=== PATIENT | female | born 1950 | race Caucasian/White ===

== ENCOUNTER 2021-10-02 17:10 | Inpatient (IN) ==
[2021-10-02] MEDS ORDERED: fentaNYL 100 MCG/2 ML VIAL IV ONE (17:43)
--- NOTE | 2021-10-02 17:55 | Emergency Department Note ---
HPI General Chief complaint: Extremity Injury, Lower Stated complaint: Lf hip fx Time Seen by Provider: 10/02/21 17:55 Source: EMS Mode of arrival: EMS Limitations: no limitations History of Present Illness HPI Narrative: Narrative: The patient is a 71-year-old female who was transferred from an outside medical facility for left hip fracture. Patient states that she fell and landed on her left hip. Denies any other injuries. Review of her medical record shows a closed impacted left femoral neck fracture. Patient states that she has a history of CABG and is on full dose aspirin daily. Related Data Home Medications Medication Instructions Recorded Confirmed aspirin [Lite Coat Aspirin] 325 mg PO DAILY 04/10/18 10/02/21 omeprazole 20 mg PO DAILY 04/10/18 10/02/21 simvastatin 20 mg PO HS 04/10/18 10/02/21 hydroxyurea 500 mg PO QDAY 10/02/21 10/02/21 Allergies Allergy/AdvReac Type Severity Reaction Status Date / Time hydrocodone AdvReac Severe Vomiting Verified 10/02/21 17:15 Review of Systems ROS ROS Narrative: Narrative: All systems ED: reviewed and negative except as stated. PFSH Narrative Patient History Narrative: Narrative: Medical/Surgical/Family History All Active Problems (Updated 10/02/21 @ 18:08 by Chidi Antonio DO) Closed left hip fracture (Acute) Social History Smoking Status: Former smoker Exam Narrative Narrative: Narrative: General Limitations: no limitations General appearance: Present alert Head Head: Present atraumatic and normocephalic Eye Eye: Present normal appearance, PERRL and EOMI ENT ENT: Present normal exam, normal oropharynx and mucous membranes moist Neck Neck: Present normal inspection, full ROM and trachea midline Chest Chest: Present normal inspection and symmetric chest wall rise Respiratory Respiratory: Present normal lung sounds bilaterally Cardiovascular Cardiovascular: Present regular rate and normal rhythm Adbominal Abdominal: Present soft and normal bowel sounds; Absent tenderness, guarding, rebound and organomegaly Rectal Rectal: Present deferred Extremities Extremities: Present tenderness (Tenderness to palpation to the left greater trochanter. Left lower extremity is shortened and externally rotated. Neurovascularly intact, compartments soft, DP and PT pulses are 2+ and symmetric, sensations intact to light touch.) Back Back: Present normal inspection and full ROM; Absent tenderness Neurological Neurological: Present alert, oriented X3, CN II-XII intact, normal gait, motor sensory deficit and reflexes normal Psychiatric Psychiatric: Present normal affect Skin Skin: Present warm (WNL); Absent rash Course Course Course Narrative: 18:00 spoke with the orthopedic surgeon, Dr. Acosta who is agreed to evaluate this patient. Also have consulted the hospitalist for evaluation as well. Vital Signs Vital signs: Vital Signs Temperature 98.2 F 10/02/21 17:11 Pulse Rate 62 10/02/21 17:11 Respiratory Rate 18 10/02/21 17:11 Blood Pressure 138/71 10/02/21 17:11 Pulse Oximetry (%) 95 10/02/21 17:11 Temperature 96.9 F L 10/02/21 23:58 Pulse Rate 63 10/02/21 20:41 Respiratory Rate 16 10/02/21 23:58 Blood Pressure 109/60 10/02/21 23:58 Pulse Oximetry (%) 95 10/02/21 23:58 MDM MDM Narrative Medical decision making narrative: Narrative: Discharge Plan Patient/Caregiver Discharge Instructions Pt seen by SKILL LABOR/PA only: No Clinical Impression: Closed left hip fracture Qualifiers: Encounter type: initial encounter Qualified Code(s): S72.002A - Fracture of unspecified part of neck of left femur, initial encounter for closed fracture Patient Disposition: Xfer As Inpt ([facility]) Condition: Serious Discharge Date/Time: 10/02/21 20:49 Discharge Location: [facility]
--- NOTE | 2021-10-02 19:36 | Internal Med History&Physical ---
HPI History of Present Illness Patient information: Note initiated : 10/02/21 at 7:27 pm Service Date, if different from initiated Date: [] Patient: Fani Barrios a 71 y/o F admitted on for Lf hip fx. Chief Complaint: [] History of present illness: Ms. Barrios is a 71 year old F Who was sent in from an outside facility after she fell and landed on her hip while getting out of a car at the same time as her dog. Found to have a left hip fracture. Patient has history of CAD with CABG and is on aspirin. Review of Systems: Pertinent positives as above. Denies headache/fever/chills/nausea/vomiting/chest or abdominal pain/cough/dyspnea/diarrhea. Remaining 10 point review of system reviewed negative PFSH PFSH All Active Problems (Updated 10/02/21 @ 18:08 by Chidi Antonio DO) Closed left hip fracture (Acute) MEDS/ALLERGIES Home Medications and Allergies Home Medications Medication Instructions Recorded Confirmed Type aspirin [Lite Coat Aspirin] 325 mg PO DAILY 04/10/18 10/02/21 History omeprazole 20 mg PO DAILY 04/10/18 10/02/21 History simvastatin 20 mg PO HS 04/10/18 10/02/21 History hydroxyurea 500 mg PO QDAY 10/02/21 10/02/21 History Allergies Allergy/AdvReac Type Severity Reaction Status Date / Time hydrocodone AdvReac Severe Vomiting Verified 10/02/21 17:15 EXAM Constitutional Vitals: Temp Pulse Resp BP Pulse Ox 98.2 F 80 18 138/70 96 10/02/21 17:11 10/02/21 18:40 10/02/21 18:40 10/02/21 18:40 10/02/21 18:40 Exam: General: Alert, Awake, No acute Distress Eyes/N/T: EOMI, PERRL, Head/Neck: neck supple, normocephalic atraumatic CV: RRR, No murmurs, normal s1/s2 Pulm: Clear b/l, no wheezing/rhonchi/rales Abd: soft, nontender, +BS x4 Ext: no clubbing/cyanosis/edema Neuro: Alert, no focal deficits, moves all extremities, CN 2-12 grossly intact, symmetrical strength b/l upper/lower, sensations intact b/l upper/lower Skin: warm/dry A/P Narrative A/P Narrative: A: *Left hip fracture: *CAD w/CABG: on ASA/statin *GERD: *h/o essential thrombocythemia: on hydroxyurea/ASA * P: -Dr. Acosta for Ortho -restart aspirin post-op for essential thrombocythemia - -pt/ot -ppx: post-op per ortho / home ppi full code Time Spent With Patient Time: Total time spent is greater than 50% in coordination of care (as documented) at patient's floor/unit and/or counseling patient:
[2021-10-02] MEDS ORDERED: POTASSIUM CHLORIDE 40 MEQ in DEXTROSE 5% IN WATER 500 ML IV PRN (21:02)
[2021-10-02] MEDS ORDERED: POTASSIUM CHLORIDE 20 MEQ TABLET PO PRN ×2 (21:02)
[2021-10-02] MEDS ORDERED: MAGNESIUM SULFATE 2 GM/50 ML BAG IV PRN (21:02)
[2021-10-02] MEDS ORDERED: HYDROcodone/APAP 5/325MG TABLET PO PRN (21:02)
[2021-10-02] MEDS ORDERED: POLYETHYLENE GLYCOL 3350 17 GM PACKET PO PRN (21:02)
[2021-10-02] MEDS ORDERED: ACETAMINOPHEN 325 MG TABLET PO PRN (21:02)
[2021-10-02] MEDS ORDERED: SENNOSIDES 1 TABLET PO PRN (21:02)
[2021-10-02] MEDS ORDERED: IPRATROPIUM/ALBUTEROL 3 ML AMPUL.NEB NEB PRN (21:02)
[2021-10-02] MEDS ORDERED: ONDANSETRON 4 MG/2 ML VIAL IV PRN (21:02)
[2021-10-02] MEDS ORDERED: traMADol 50 MG TABLET PO PRN (21:42)
[2021-10-02] MEDS: DOCUSATE SODIUM 100 MG CAPSULE PO SCH (21:50)
[2021-10-02] MEDS: SIMVASTATIN 20 MG TABLET PO SCH (21:50)
[2021-10-02] MEDS: 0.9 % SODIUM CHLORIDE 10 ML SYRINGE IV SCH (22:12)
[2021-10-02] MEDS ORDERED: METHOCARBAMOL 1,000 MG/10 ML VIAL IV PRN (23:23)
[2021-10-02] MEDS ORDERED: METHOCARBAMOL 1,000 MG/10 ML VIAL ONE (23:40)
[2021-10-03] MEDS ORDERED: fentaNYL 100 MCG/2 ML VIAL IV PRN (00:59)
[2021-10-03] MEDS: 0.9 % SODIUM CHLORIDE 10 ML SYRINGE IV SCH ×3 (05:37→20:21)
[2021-10-03 06:36] LABS: Basophils # (Auto) 0.02 K/mcL (0.00-0.30); Basophils % (Auto) 0.3 % (0.0-2.0); Eosinophils # (Auto) 0.06 K/mcL (0.00-0.70); Eosinophils % (Auto) 0.8 % (0.0-7.0); Hematocrit 37.1 % (34.1-44.9); Hemoglobin 12.5 g/dL (11.2-15.7); Lymphocytes # (Auto) 1.86 K/mcL (1.50-4.80); Lymphocytes % (Auto) 23.7 % (15.5-49.0); Mean Cell Volume 114.2 fL (80.0-100.0); Mean Corpuscular HGB Conc 33.7 g/dL (31.0-36.0); Mean Platelet Volume 9.9 fL (7.4-10.4); Monocytes # (Auto) 0.68 K/mcL (0.10-0.90); Monocytes % (Auto) 8.7 % (1.0-12.0); Neutrophils % (Auto) 66.5 % (38.0-78.0); Platelet Count 182 K/mcL (140-440); RBC 3.25 M/mcL (3.59-5.38); Red Cell Distribution Width 11.9 % (11.5-14.5); WBC 7.9 K/mcL (4.5-11.0)
[2021-10-03] MEDS: OMEPRAZOLE 20 MG CAPSULE PO SCH (06:43)
[2021-10-03 06:58] LABS: INR 1.1 (0.9-1.1); Prothrombin Time 14.7 sec (11.9-14.5)
[2021-10-03 07:12] LABS: ALT/SGPT 15 U/L (<40); AST/SGOT 21 U/L (<32); Albumin 3.9 gm/dL (3.2-5.2); Albumin/Globulin Ratio 1.5 (1.0-2.3); Alkaline Phosphatase 70 U/L (39-117); Bilirubin,Direct < 0.2 mg/dL (0-0.3); Bilirubin,Total 0.6 mg/dL (0.1-1.0); Blood Urea Nitrogen 22 mg/dL (8-23); Calcium 9.2 mg/dL (8.6-10.4); Carbon Dioxide 23 mmol/L (22-30); Chloride 103 mmol/L (96-108); Globulin 2.6 gm/dL (2.2-3.7); Glomerular Filtration Rate 56; Glucose 93 mg/dL (70-105); Lactate Dehydrogenase 187 U/L (135-225); Phosphorous 3.4 mg/dL (2.5-4.5); Triglycerides 115 mg/dL (<150); Uric Acid 4.1 mg/dL (2.5-8.0)
[2021-10-03] MEDS ORDERED: TRANEXAMIC ACID 1,000 MG/10 ML VIAL IV ONE (07:25)
[2021-10-03] MEDS ORDERED: ceFAZolin 2 GM in DEXTROSE 5% IN WATER 50 ML IV SCH (07:30)
--- NOTE | 2021-10-03 07:39 | Internal Med Progress Note ---
SUBJECTIVE Subjective Patient information: Note initiated : 10/03/21 at 7:37 am Service Date, if different from initiated Date: [] Patient: Fani Barrios a 71 y/o F admitted on 10/02/21 for Lf hip fx. Chief Complaint: [] Interval history: History of present illness: Ms. Barrios is a 71 year old F Who was sent in from an outside facility after she fell and landed on her hip while getting out of a car at the same time as her dog. Found to have a left hip fracture. Patient has history of CAD with CABG and is on aspirin. 10/03 now s/p ORIF of hip. Sedated postop in PACU. No complications during surgery. Review of Systems: Constitutional Vitals: Vital Signs Temp Pulse Resp BP Pulse Ox 97 F 58 L 19 129/73 95 10/03/21 06:31 10/03/21 06:31 10/03/21 06:31 10/03/21 06:31 10/03/21 06:31 Period Temp Pulse Resp BP Sys/Carr Pulse Ox Last 24 Hr 96.3 F-98.2 F 58-80 16-19 109-147/60-79 91-97 Intake and Output 10/02/21 10/03/21 10/03/21 22:59 05:59 13:59 Intake Total Output Total Balance Weight Intake & Output: Intake & Output 10/02/21 10/03/21 10/03/21 22:59 05:59 13:59 Intake Total Output Total Balance Weight Intake: Oral Output: Void Amount Other: Meal Percent of Meal Consumed Urine Appearance Uretheral (Alberts) Clear Urine Color Uretheral (Alberts) Bright Yellow Urine Odor Uretheral (Alberts) Normal Exam: General: Alert, Awake, No acute Distress Eyes/N/T: EOMI, Head/Neck: neck supple, CV: RRR, No murmurs, Pulm: Clear b/l, no wheezing/rhonchi/rales Abd: soft, nontender, +BS x4 Ext: no clubbing/cyanosis/edema Neuro: Alert, no focal deficits, moves all extremities, Skin: warm/dry OBJ DATA Labs CBC & Chem 7: 10/03/21 05:19 10/03/21 05:19 Labs: Abnormal Lab Results 10/03/21 10/03/21 05:19 05:19 RBC 3.25 L MCV 114.2 H MCH 38.5 H PT 14.7 H Meds: Medications Acetaminophen (Acetaminophen 325 Mg Tablet) 650 mg PO Q6HP PRN; Protocol PRN Reason: Per Pain Protocol/Fever > 101 Last Admin: 10/02/21 21:49 Dose: 650 mg Documented by: Albuterol/Ipratropium (Ipratropium/Albuterol 3 Ml Ampul.Neb) 3 ml NEB Q4HP PRN PRN Reason: Shortness Of Breath Albuterol/Ipratropium (Ipratropium/Albuterol 3 Ml Ampul.Neb) 3 ml NEB ONCE PRN PRN Reason: Shortness Of Breath Stop: 10/03/21 18:00 Docusate Sodium (Docusate Sodium 100 Mg Capsule) 100 mg PO BID [facility] Last Admin: 10/02/21 21:50 Dose: 100 mg Documented by: Fentanyl (Fentanyl 100 Mcg/2 Ml Vial) 25 mcg IV Q2HP PRN; Protocol PRN Reason: Per Pain Protocol Hydroxyurea (Hydroxyurea 500 Mg Capsule) 500 mg PO QDAY JOHN Potassium Chloride 40 meq/ (Dextrose) 520 mls @ 130 mls/hr IV UD PRN PRN Reason: Potassium < 3 Magnesium Sulfate (Magnesium Sulfate) 2 gm in 50 mls @ 50 mls/hr IV UD PRN PRN Reason: Magnesium </= 1.6 Cefazolin Sodium 2 gm/ (Dextrose) 50 mls @ 100 mls/hr IV PREOP JOHN; Protocol Methocarbamol (Methocarbamol 1,000 Mg/10 Ml Vial) 750 mg IV Q6HP PRN PRN Reason: Muscle Spasm Omeprazole (Omeprazole 20 Mg Capsule) 20 mg PO ACB [facility] Last Admin: 10/03/21 06:43 Dose: Not Given Documented by: Ondansetron HCl (Ondansetron 4 Mg/2 Ml Vial) 4 mg IV Q4HP PRN PRN Reason: Nausea And Vomiting Polyethylene Glycol (Polyethylene Glycol 3350 17 Gm Packet) 17 gm PO DAILYP PRN PRN Reason: Constipation Potassium Chloride (Potassium Chloride 20 Meq Tablet) 40 meq PO UD PRN PRN Reason: Potssium is 3-3.5 Potassium Chloride (Potassium Chloride 20 Meq Tablet) 40 meq PO UD PRN PRN Reason: Potassium < 3 Scopolamine (Scopolamine 1 Patch Patch) 1 patch TOPICAL PREOP PRN PRN Reason: Nausea And Vomiting Stop: 10/03/21 18:00 Senna (Sennosides 1 Tablet) 2 tab PO DAILYP PRN PRN Reason: Constipation Simvastatin (Simvastatin 20 Mg Tablet) 20 mg PO HS JOHN Last Admin: 10/02/21 21:50 Dose: 20 mg Documented by: Sodium Chloride (0.9 % Sodium Chloride 10 Ml Syringe) 10 ml IV Q8 JOHN Last Admin: 10/03/21 05:37 Dose: 10 ml Documented by: Tramadol HCl (Tramadol 50 Mg Tablet) 50 mg PO Q4-6HP PRN; Protocol PRN Reason: Pain Last Admin: 10/02/21 21:49 Dose: 50 mg Documented by: Tranexamic Acid (Tranexamic Acid 1,000 Mg/10 Ml Vial) 1,000 mg IV PREOP ONE Stop: 10/03/21 07:26 A/P Narrative A/P Narrative: A: *Left hip fracture: s/p ORIF (10/03) *CAD w/CABG: on ASA/statin *GERD: *h/o essential thrombocythemia: on hydroxyurea/ASA P: -Dr. Acosta for Ortho -restart aspirin post-op for essential thrombocythemia - -pt/ot -ppx: post-op per ortho / home ppi full code Time Spent With Patient Time: Total time spent is greater than 50% in coordination of care (as documented) at patient's floor/unit and/or counseling patient:
[2021-10-03] MEDS ORDERED: 0.9 % SODIUM CHLORIDE 1,000 ML IV SCH (07:45)
[2021-10-03] MEDS ORDERED: IPRATROPIUM/ALBUTEROL 3 ML AMPUL.NEB NEB PRN ×2 (08:00→08:58)
[2021-10-03] MEDS ORDERED: SCOPOLAMINE 1 PATCH PATCH TOPICAL PRN (08:00)
[2021-10-03] MEDS ORDERED: fentaNYL 100 MCG/2 ML VIAL IV ONE (08:15)
[2021-10-03] MEDS ORDERED: GLYCOPYRROLATE 0.2 MG/ML VIAL IV ONE (08:15)
[2021-10-03] MEDS ORDERED: ONDANSETRON 4 MG/2 ML VIAL ONE (08:15)
[2021-10-03] MEDS ORDERED: DEXAMETHASONE 10 MG/ML VIAL ONE (08:15)
[2021-10-03] MEDS ORDERED: MAGNESIUM SULFATE 2 GM/50 ML BAG IV ONE (08:15)
[2021-10-03] MEDS ORDERED: LIDOCAINE HCL/PF 100 MG/5 ML SYRINGE IV ONE (08:15)
[2021-10-03] MEDS ORDERED: PHENYLEPHRINE 10 MG/ML VIAL ONE (08:15)
[2021-10-03] MEDS ORDERED: KETAMINE 50 MG/ML Syringe (ANEST) IV ONE (08:15)
[2021-10-03] MEDS ORDERED: TRANEXAMIC ACID 1,000 MG/10 ML VIAL ONE (08:15)
[2021-10-03] MEDS ORDERED: PROPOFOL 200 MG/20 ML VIAL IV ONE (08:15)
[2021-10-03] MEDS: DOCUSATE SODIUM 100 MG CAPSULE PO SCH ×2 (08:51→20:30)
[2021-10-03] MEDS ORDERED: METOPROLOL TARTRATE 5 MG/5 ML VIAL IV PRN (08:58)
[2021-10-03] MEDS ORDERED: LACTATED RINGERS 250 ML IV PRN (08:58)
[2021-10-03] MEDS ORDERED: HYDROmorphone 0.5 MG/0.5 ML SYRINGE IV PRN (08:58)
[2021-10-03] MEDS ORDERED: ONDANSETRON 4 MG/2 ML VIAL IV PRN (08:58)
[2021-10-03] MEDS ORDERED: LABETALOL 5 MG/ML ML IV PRN (08:58)
[2021-10-03] MEDS ORDERED: METHOCARBAMOL 1,000 MG/10 ML VIAL IV PRN (08:58)
[2021-10-03] MEDS ORDERED: NALOXONE HCL 0.4 MG/ML VIAL IV PRN (08:58)
[2021-10-03] MEDS ORDERED: BENZOCAINE/MENTHOL 1 LOZENGE PO PRN ×2 (08:58→09:41)
[2021-10-03] MEDS ORDERED: LACTATED RINGERS 1,000 ML IV SCH (09:00)
[2021-10-03] MEDS ORDERED: ACETAMINOPHEN 850 MG/85 ML BAG IV ONE (09:00)
--- NOTE | 2021-10-03 09:40 | Brief Operative Note ---
Brief Operative Note Date of procedure: 10/03/21 Pre-op diagnosis: left displaced femoral neck fracture Post-op diagnosis: same Procedure: left cement sydney hip arthroplasty Grafts/Implants: Yes Anesthesia: GETA Findings: displaced femoral neck fracture Complications: none Surgeon: Cassandra Acosta Button Breaker Operator: Leighton Lau Estimated blood loss (cc): 200 Tourniquet Time (Minutes): 0 Specimens Removed/Pathology: none sent Condition: stable Disposition: PACU
[2021-10-03] MEDS ORDERED: TRANEXAMIC ACID 1,000 MG/10 ML VIAL IV SCH (09:41)
[2021-10-03] MEDS ORDERED: ceFAZolin 1 GM VIAL IV SCH (09:45)
[2021-10-03] MEDS ORDERED: METHOCARBAMOL 750 MG TABLET PO PRN (09:45)
[2021-10-03] MEDS: HYDROXYUREA 500 MG CAPSULE PO SCH (10:32)
--- NOTE | 2021-10-03 10:45 | XRay Report ---
INDICATION: status post sydney hip arthroplasty TECHNIQUE: AP pelvis. AP and lateral left hip COMPARISON: Previous examination dated 10/02/2021 FINDINGS: Status post left hemihip arthroplasty. Alignment is anatomic. There is postsurgical soft tissue gas. There are skin sandeep. IMPRESSION: Left hemihip arthroplasty Interpreted and Authenticated by: Steven Arroyo 10/03/21
[2021-10-03] MEDS: LACTATED RINGERS 1,000 ML IV SCH ×2 (11:49→21:20)
[2021-10-03] MEDS: ACETAMINOPHEN 325 MG TABLET PO SCH ×2 (13:38→20:32)
[2021-10-03] MEDS: ceFAZolin 1 GM VIAL IV SCH ×2 (16:18→23:31)
--- NOTE | 2021-10-03 17:08 | EKG ---
[facility] Test Date: 2021-10-02 Pat Name: Fani Barrios Department: [facility] Room: 126 Gender: Female Airport Engineer: : 1950 Requested By: Kingston Dunne Order Number: [id number] Reading MD: Forrest Anderson Measurements Intervals Goode Rate: 63 P: 74 NM: 152 QRS: -14 QRSD: 102 T: 142 QT: 436 QTc: 447 Interpretive Statements SINUS RHYTHM LEFT ATRIAL ABNORMALITY PROBABLE ANTEROSEPTAL INFARCT, AGE INDETERM LATERAL LEADS ARE ALSO INVOLVED Electronically Signed On 10-03-2021 17:08:21 PST by Forrest Anderson /[email or web address]/[id number]/[id number]
[2021-10-03] MEDS: SIMVASTATIN 20 MG TABLET PO SCH (20:31)
[2021-10-03] MEDS: APIXABAN 5 MG TABLET PO SCH (20:33)
[2021-10-04] MEDS: traMADol 50 MG TABLET PO PRN ×2 (05:21→17:31)
[2021-10-04] MEDS: ACETAMINOPHEN 325 MG TABLET PO SCH ×2 (05:22→16:06)
[2021-10-04] MEDS: 0.9 % SODIUM CHLORIDE 10 ML SYRINGE IV SCH ×3 (05:25→22:27)
--- NOTE | 2021-10-04 06:17 | Orthopedic Progress Note ---
SUBJECTIVE Subjective Patient information: Note initiated : 10/04/21 at 6:13 am Service Date, if different from initiated Date: [] Patient: Fani Barrios 71 y/o F admitted on 10/02/21 for Lf hip fx. Chief Complaint: [POD 1 s/p left hip sydney hip arthroplasty. No new issues. Pain is controlled. No nausea, tolerating oral diet. Not mobilized yet.] Constitutional Vitals: Vital Signs Temp Pulse Resp BP Pulse Ox 96.8 F L 74 16 135/68 95 10/04/21 03:25 10/04/21 03:25 10/04/21 03:25 10/04/21 03:25 10/04/21 03:25 Period Temp Pulse Resp BP Sys/Carr Pulse Ox Last 24 Hr 96.8 F-98.7 F 54-77 6-19 117-162/65-103 88-100 Intake and Output 10/03/21 10/04/21 10/04/21 21:59 05:59 13:59 Intake Total 250 1200 Output Total 1500 500 Balance -1250 700 Weight 125 lb Intake & Output: Intake & Output 10/03/21 10/04/21 10/04/21 21:59 05:59 13:59 Intake Total 250 1200 Output Total 1500 500 Balance -1250 700 Weight 125 lb Intake: IV 1000 Lactated Ringers 1,000 ml @ 75 1000 mls/hr IV .[id number] [facility] Rx#: [id number] Oral 250 200 Output: Urine Catheter Amount 800 Void Amount 700 500 Other: Meal Dinner Percent of Meal Consumed 100% Urine Appearance Clear Uretheral (Alberts) Clear Urine Color Bright Yellow Bright Yellow Uretheral (Alberts) Pale Additional findings Additional findings: General: alert and oriented Left hip: dressing in place, clean and dry. Able to do straight leg raise. Foot warm well perfused. OBJ DATA Labs CBC & Chem 7: 10/03/21 05:19 10/03/21 05:19 Labs: Abnormal Lab Results 10/03/21 10/03/21 05:19 05:19 RBC 3.25 L MCV 114.2 H MCH 38.5 H PT 14.7 H Meds: Medications Acetaminophen (Acetaminophen 325 Mg Tablet) 1,000 mg PO Q8 [facility]; Protocol Last Admin: 10/04/21 05:22 Dose: 1,000 mg Documented by: Albuterol/Ipratropium (Ipratropium/Albuterol 3 Ml Ampul.Neb) 3 ml NEB Q4HP PRN PRN Reason: Shortness Of Breath Apixaban (Apixaban 5 Mg Tablet) 2.5 mg PO BID [facility] Last Admin: 10/03/21 20:33 Dose: Not Given Documented by: Docusate Sodium (Docusate Sodium 100 Mg Capsule) 100 mg PO BID [facility] Last Admin: 10/03/21 20:30 Dose: 100 mg Documented by: Fentanyl (Fentanyl 100 Mcg/2 Ml Vial) 25 mcg IV Q2HP PRN; Protocol PRN Reason: Per Pain Protocol Hydroxyurea (Hydroxyurea 500 Mg Capsule) 500 mg PO QDAY [facility] Last Admin: 10/03/21 10:32 Dose: Not Given Documented by: Potassium Chloride 40 meq/ (Dextrose) 520 mls @ 130 mls/hr IV UD PRN PRN Reason: Potassium < 3 Magnesium Sulfate (Magnesium Sulfate) 2 gm in 50 mls @ 50 mls/hr IV UD PRN PRN Reason: Magnesium </= 1.6 Lactated Ringer's (Lactated Ringers) 1,000 mls @ 75 mls/hr IV .[id number] [facility] Last Infusion: 10/04/21 01:20 Dose: Infused Documented by: Methocarbamol (Methocarbamol 750 Mg Tablet) 500 mg PO Q6HP PRN PRN Reason: Muscle Spasm Omeprazole (Omeprazole 20 Mg Capsule) 20 mg PO ACB [facility] Last Admin: 10/03/21 06:43 Dose: Not Given Documented by: Ondansetron HCl (Ondansetron 4 Mg/2 Ml Vial) 4 mg IV Q4HP PRN PRN Reason: Nausea And Vomiting Polyethylene Glycol (Polyethylene Glycol 3350 17 Gm Packet) 17 gm PO DAILYP PRN PRN Reason: Constipation Potassium Chloride (Potassium Chloride 20 Meq Tablet) 40 meq PO UD PRN PRN Reason: Potssium is 3-3.5 Potassium Chloride (Potassium Chloride 20 Meq Tablet) 40 meq PO UD PRN PRN Reason: Potassium < 3 Senna (Sennosides 1 Tablet) 2 tab PO DAILYP PRN PRN Reason: Constipation Simvastatin (Simvastatin 20 Mg Tablet) 20 mg PO HS [facility] Last Admin: 10/03/21 20:31 Dose: 20 mg Documented by: Sodium Chloride (0.9 % Sodium Chloride 10 Ml Syringe) 10 ml IV Q8 JOHN Last Admin: 10/04/21 05:25 Dose: 10 ml Documented by: Throat Lozenges (Benzocaine/Menthol 1 Lozenge) 1 lozenge PO PRN PRN PRN Reason: Sore Throat Tramadol HCl (Tramadol 50 Mg Tablet) 50 - 100 mg PO Q4-6HP PRN; Protocol PRN Reason: Pain Last Admin: 10/04/21 05:21 Dose: 50 mg Documented by: A/P Assessment and plan (1) Closed left hip fracture: Status: Acute Comment: POD 1 s/p left hip sydney arthroplasty for displaced femoral neck fracture. -- WBAT, posterior hip precautions -- PT/OT today -- Oral pain meds -- regular diet -- prophy: eliquis, IS, foot pumps, mobilization -- Dispo: pending on how she does with PT- possible home Qualifiers: Encounter type: initial encounter Qualified Code(s): S72.002A - Fracture of unspecified part of neck of left femur, initial encounter for closed fracture Time Spent With Patient Time: Total time spent is greater than 50% in coordination of care (as documented) at patient's floor/unit and/or counseling patient:
[2021-10-04 06:38] LABS: Hematocrit 35.1 % (34.1-44.9); Hemoglobin 12.7 g/dL (11.2-15.7)
--- NOTE | 2021-10-04 07:10 | Consultation ---
DATE OF CONSULTATION: 10/02/2021 REASON FOR CONSULTATION: Left hip fracture. CONSULTING PROVIDER: ER provider at [facility]. HISTORY OF PRESENT ILLNESS: The patient is a 71-year-old female, who was out of town today when she had a ground level fall resulting when her dog got pulled on the leash. She fell on her left side, is unable to ambulate and was subsequently seen in an outside emergency department and found to have a left displaced femoral neck fracture. Subsequently, transferred to [facility] for further evaluation and care. Upon presentation, she only complains about left hip pain. She denies any loss of consciousness or any other injuries at that time. PAST MEDICAL HISTORY: Significant for coronary artery disease with prior CABG with reported cardiology followup. Doing well, hypertension. PAST SURGICAL HISTORY: She has had thumb surgery as well as colonoscopies. ALLERGIES: NO KNOWN DRUG ALLERGIES. MEDICATIONS: She does not know the names of them. However, she does report she does take 3 with the list being aspirin, omeprazole, simvastatin, hydroxyurea. SOCIAL HISTORY: She resides with her here locally. She has no other family in [facility]. Reports that her has had both hips fractured and what sounds like a hemihip arthroplasty. REVIEW OF SYSTEMS: Other than the mentioned in HPI, a 10-point review of systems negative. PHYSICAL EXAMINATION: VITAL SIGNS: The patient is afebrile with temperature 98.2. Her heart rate is in the 50s to low 60s, blood pressure 130s/70s. Saturating in the 90s on room air. NEUROLOGIC: The patient is alert, oriented, interactive, appropriate. EXTREMITIES: Bilateral extremities appear atraumatic. She has full use of the extremities. Right lower extremity is atraumatic as well. No tenderness to palpation throughout the foot. It is warm and well perfused. Sensation is intact. Left lower extremity, she has a hip slightly flexed with a pillow underneath her knee, slightly shortened position. She does have tenderness about the hip, but also a bit above the knee itself. There are no abrasions. Skin is intact about the knee. There is no knee joint effusion. No crepitus, no abnormal appearance to it. Otherwise, the remainder of the extremity is atraumatic. The foot is warm and well perfused. Sensation is intact. IMAGING: She has plain radiographs demonstrating a displaced left femoral neck fracture. LABORATORY DATA: She has labs from outside facility with a CBC with a white count of 7, hemoglobin of 13.4, hematocrit is 37.9, platelet count is 164. She has a chemistry with a glucose of 93 and a creatinine of 0.9. Code is pending as well as the coags at the outside facilities reports that is pending as well. ASSESSMENT AND PLAN: This is a 71-year-old female who had a past history of coronary artery disease requiring CABG procedure with a displaced left femoral neck fracture. PLAN: I discussed the diagnosis with her at length. I reviewed the treatment options with recommendation for a left hip hemiarthroplasty. I discussed what this entails, the risks associated with this. Also discussed a total hip arthroplasty; however, has a bit higher dislocation rate and typically my recommendation would be for a hip hemiarthroplasty. Her had 2 of these. She is well versed and does agree that this is okay treatment for her and wished to proceed in that fashion. I will plan to do this tomorrow morning until then she can be nonweightbearing. I did discuss the patient with the hospitalist, who agreed to admit patient. CHANG:cassi Job ID: [id number] Doc ID: [id number] Cassandra Acosta MD [email or web address]
--- NOTE | 2021-10-04 07:49 | Internal Med Progress Note ---
SUBJECTIVE Subjective Patient information: Note initiated : 10/04/21 at 7:47 am Service Date, if different from initiated Date: [] Patient: Fani Barrios a 71 y/o F admitted on 10/02/21 for Lf hip fx. Chief Complaint: [] Interval history: History of present illness: Ms. Barrios is a 71 year old F Who was sent in from an outside facility after she fell and landed on her hip while getting out of a car at the same time as her dog. Found to have a left hip fracture. Patient has history of CAD with CABG and is on aspirin. 10/03 now s/p ORIF of hip. Sedated postop in PACU. No complications during surgery. 10/04 Patient doing well. Hoping to go home instead of to rehab. Review of Systems: denies headache/fever/chills/nausea/vomiting/chest or abdominal pain/cough/dyspnea/diarrhea. Otherwise see above. Constitutional Vitals: Vital Signs Temp Pulse Resp BP Pulse Ox 97.1 F 94 H 16 116/67 93 10/04/21 07:16 10/04/21 07:16 10/04/21 07:16 10/04/21 07:16 10/04/21 07:16 Period Temp Pulse Resp BP Sys/Carr Pulse Ox Last 24 Hr 96.8 F-98.7 F 54-94 6-18 116-162/65-103 88-100 Intake and Output 10/03/21 10/04/21 10/04/21 21:59 05:59 13:59 Intake Total 250 1200 Output Total 1500 500 Balance -1250 700 Weight 56.699 kg Intake & Output: Intake & Output 10/03/21 10/04/21 10/04/21 21:59 05:59 13:59 Intake Total 250 1200 Output Total 1500 500 Balance -1250 700 Weight 56.699 kg Intake: IV 1000 Lactated Ringers 1,000 ml @ 75 1000 mls/hr IV .[id number] [facility] Rx#: [id number] Oral 250 200 Output: Urine Catheter Amount 800 Void Amount 700 500 Other: Meal Dinner Percent of Meal Consumed 100% Urine Appearance Clear Uretheral ([place]berts) Clear Urine Color Bright Yellow Bright Yellow Uretheral ([place]berts) Pale Exam: General: Alert, Awake, No acute Distress Eyes/N/T: EOMI, Head/Neck: neck supple, CV: RRR, No murmurs, Pulm: Clear b/l, no wheezing/rhonchi/rales Abd: soft, nontender, +BS x4 Ext: no clubbing/cyanosis/edema Neuro: Alert, no focal deficits, moves all extremities, Skin: warm/dry OBJ DATA Labs CBC & Chem 7: 10/04/21 05:28 10/03/21 05:19 Labs: Abnormal Lab Results 10/03/21 10/03/21 05:19 05:19 RBC 3.25 L MCV 114.2 H MCH 38.5 H PT 14.7 H Meds: Medications Acetaminophen (Acetaminophen 325 Mg Tablet) 1,000 mg PO Q8 [facility]; Protocol Last Admin: 10/04/21 05:22 Dose: 1,000 mg Documented by: Albuterol/Ipratropium (Ipratropium/Albuterol 3 Ml Ampul.Neb) 3 ml NEB Q4HP PRN PRN Reason: Shortness Of Breath Apixaban (Apixaban 5 Mg Tablet) 2.5 mg PO BID [facility] Last Admin: 10/03/21 20:33 Dose: Not Given Documented by: Docusate Sodium (Docusate Sodium 100 Mg Capsule) 100 mg PO BID [facility] Last Admin: 10/03/21 20:30 Dose: 100 mg Documented by: Fentanyl (Fentanyl 100 Mcg/2 Ml Vial) 25 mcg IV Q2HP PRN; Protocol PRN Reason: Per Pain Protocol Hydroxyurea (Hydroxyurea 500 Mg Capsule) 500 mg PO QDAY [facility] Last Admin: 10/03/21 10:32 Dose: Not Given Documented by: Potassium Chloride 40 meq/ (Dextrose) 520 mls @ 130 mls/hr IV UD PRN PRN Reason: Potassium < 3 Magnesium Sulfate (Magnesium Sulfate) 2 gm in 50 mls @ 50 mls/hr IV UD PRN PRN Reason: Magnesium </= 1.6 Lactated Ringer's (Lactated Ringers) 1,000 mls @ 75 mls/hr IV .[id number] [facility] Last Infusion: 10/04/21 01:20 Dose: Infused Documented by: Methocarbamol (Methocarbamol 750 Mg Tablet) 500 mg PO Q6HP PRN PRN Reason: Muscle Spasm Omeprazole (Omeprazole 20 Mg Capsule) 20 mg PO ACB [facility] Last Admin: 10/03/21 06:43 Dose: Not Given Documented by: Ondansetron HCl (Ondansetron 4 Mg/2 Ml Vial) 4 mg IV Q4HP PRN PRN Reason: Nausea And Vomiting Polyethylene Glycol (Polyethylene Glycol 3350 17 Gm Packet) 17 gm PO DAILYP PRN PRN Reason: Constipation Potassium Chloride (Potassium Chloride 20 Meq Tablet) 40 meq PO UD PRN PRN Reason: Potssium is 3-3.5 Potassium Chloride (Potassium Chloride 20 Meq Tablet) 40 meq PO UD PRN PRN Reason: Potassium < 3 Senna (Sennosides 1 Tablet) 2 tab PO DAILYP PRN PRN Reason: Constipation Simvastatin (Simvastatin 20 Mg Tablet) 20 mg PO HS [facility] Last Admin: 10/03/21 20:31 Dose: 20 mg Documented by: Sodium Chloride (0.9 % Sodium Chloride 10 Ml Syringe) 10 ml IV Q8 [facility] Last Admin: 10/04/21 05:25 Dose: 10 ml Documented by: Throat Lozenges (Benzocaine/Menthol 1 Lozenge) 1 lozenge PO PRN PRN PRN Reason: Sore Throat Tramadol HCl (Tramadol 50 Mg Tablet) 50 - 100 mg PO Q4-6HP PRN; Protocol PRN Reason: Pain Last Admin: 10/04/21 05:21 Dose: 50 mg Documented by: A/P Narrative A/P Narrative: A: *Left hip fracture: s/p ORIF (10/03) *CAD w/CABG: on ASA/statin *GERD: *h/o essential thrombocythemia: on hydroxyurea/ASA -well controlled P: -Dr. Acosta for Ortho -restart aspirin post-op for essential thrombocythemia when ok with ortho - -pt/ot -ppx: post-op per ortho apixaban / home ppi full code Time Spent With Patient Time: Total time spent is greater than 50% in coordination of care (as documented) at patient's floor/unit and/or counseling patient:
[2021-10-04] MEDS: OMEPRAZOLE 20 MG CAPSULE PO SCH (08:01)
[2021-10-04] MEDS: APIXABAN 5 MG TABLET PO SCH ×3 (08:01→22:27)
[2021-10-04] MEDS: DOCUSATE SODIUM 100 MG CAPSULE PO SCH ×2 (08:01→22:27)
[2021-10-04] MEDS: HYDROXYUREA 500 MG CAPSULE PO SCH (08:02)
--- NOTE | 2021-10-04 08:22 | Operative Note ---
DATE OF OPERATION: 10/03/2021 PREOPERATIVE DIAGNOSIS: Left displaced femoral neck fracture. POSTOPERATIVE DIAGNOSIS: Left displaced femoral neck fracture. PROCEDURE PERFORMED: Left hip hemiarthroplasty, cemented. SURGEON: Cassandra Acosta M.D. CHIEF ADMINISTRATIVE OFFICER: Leighton Lau PA-C. This providers expertise and technical skill were required throughout the case. The RITIKA assisted with preoperative coordination, intraoperative retraction, wound closure, and dressing and splint application, as well as postoperative documentation and care coordination. TECHNICAL SUPPORT COORDINATOR: Luis A Matthews CRNA ANESTHESIA: General. INTRAVENOUS FLUIDS: 1200 mL of lactated Ringer's. ESTIMATED BLOOD LOSS: Less than 200 mL IV ANTIBIOTICS: 2 grams Ancef. IMPLANTS: A DePuy basic summit size 3 cemented stem with a 44 mm head ball and a zero spacer. PATHOLOGY/LAB: None; however, exposure of the femoral head, which appeared apathologic. INTRAOPERATIVE COMPLICATIONS: None apparent. INDICATIONS FOR PROCEDURE: The patient is a 71-year-old female with a ground level fall caused by her dog, resulting in a displaced femoral neck fracture. She was evaluated in the Emergency Department and found to have an isolated injury. She was admitted overnight with a discussion for treatment options including operative and nonoperative treatment. She elected to proceed with operative intervention. I discussed risks, benefits of the surgery as well as postoperative expectations and recovery process. DESCRIPTION OF PROCEDURE: The patient was met in the preoperative holding area where site was verified and marked with the patient's input. She was taken back to the operating room where she underwent successful anesthesia via endotracheal tube. She was placed in lateral decubitus position with the left side up and her arm was in the cutout for her arm negating the need for an axillary roll. The left lower extremity was then prepped and draped in the usual sterile fashion with ChloraPrep. Surgical timeout was performed to verify patient's identity, correct procedure being performed, and correct extremity being operated on. Everybody was in agreement. Incision was made over the greater trochanter proximally extending posteriorly. Skin was sharply incised. Hemostasis was obtained with electrocautery device and then dissection was taken down to the tensor fascia laterally as well as the glute alan tendon posteriorly. The fibers were incised in line with the muscle fibers itself and then exposed the subtrochanteric bursa area. This was excised. With slight internal rotation, exposing the posterior aspect of the proximal femur, elevated off the external rotators and tagged these with a suture, exposing the capsule and the fracture itself. Created a capsulotomy in line with the femoral neck up to the labrum, which was ensured not to be injured. We tagged the capsular edges. At this point, dissected down to the lesser trochanter as well with the Bovie device. Hemostasis was obtained throughout the case. We placed a retractor to expose the femoral neck here as well. We made our femoral neck cut at approximately 15 mm into the sulcus of the femoral neck. This was then removed. The femoral head was then removed with a corkscrew device. All bony debris was removed as well. At this point, we exposed the femoral neck with a femoral neck elevator. Utilizing a canal finder lateralizer and broached up to a size 3 with good overall interference fit matching the version of the posterior cortex. We placed a standard +0 offset neck and head ball, and reduced the joint. This restored her standard length and was stable both with internal rotation and hip flexion to 90 degrees. It had full extension without lag. I felt this was adequate. The joint was then dislocated. The head ball was removed and calcar planed. Broach removedf. All implants were then removed. The wound was copiously irrigated throughout the case with IrriSept as well as pulse lavage. We placed a clean lap within the acetabulum itself. The cement restrictor was placed in the canal as measured from the stem. The canal was then brushed, pulse lavaged and placed a dry sucker within the canal itself. Once the cement was mixed, we placed it in the canal and pressurized. We placed the stem and held in place until the cement hardened. The head ball was impacted, joint was reduced and again reproducing stability of the joint itself and adequate length. At this point, again the joint was pulse lavaged, irrigated with IrriSept. The capsule was closed with #2 Ethibond. Tensor fascia was closed at the level of the musculotendinous junction with #1 Vicryl and running this proximally over the muscle in a running fashion. Distally this was closed with Stratafix. Subcutaneous tissue was closed in layered fashion with 2-0 Vicryl and 3-0 Vicryl and the skin was closed with sandeep. The leg was then cleaned and dried. We placed a silver dressing and hip abduction pillow. The patient awoke from anesthesia and transferred to PACU in stable condition. POSTOPERATIVE PLAN: The patient will be admitted back to the floor for postoperative recovery. She is weightbearing as tolerated with posterior hip precautions for 6 weeks. DLW:ajay Job ID: [id number] Doc ID: [id number] Cassandra Acosta MD [facility]
--- NOTE | 2021-10-04 10:01 | Discharge Summary ---
Discharge Provider Provider Patient information: Note initiated : 10/04/21 at 9:59 am Service Date, if different from initiated Date: [] Patient: Fani Barrios 71 y/o F admitted on 10/02/21 for Lf hip fx. Chief Complaint: [] Date of admission: 10/02/21 20:49 Discharge date: 10/04/21 Primary care physician: Al Parsons Consults: 10/02/21 21:02 Consult to Physician [CONS] Routine Comment: Consulting Provider: Cassandra Acosta Reason For Exam: Physician to Consult Discharge Meds Discharge Medications Home Medications aspirin [Lite Coat Aspirin] 325 mg PO DAILY 04/10/18 [History Confirmed 10/02/21 Last Taken Unknown] omeprazole 20 mg PO DAILY 04/10/18 [History Confirmed 10/02/21 Last Taken Unknown] simvastatin 20 mg PO HS 04/10/18 [History Confirmed 10/02/21 Last Taken Unknown] hydroxyurea 500 mg PO QDAY 10/02/21 [History Confirmed 10/02/21 Last Taken Unknown] acetaminophen [Tylenol] 1,000 mg PO Q8 #90 tab 10/04/21 [Rx Last Taken Unknown] apixaban [Eliquis] 2.5 mg PO BID #66 tab 10/04/21 [Rx Last Taken Unknown] aspirin 325 mg PO BID #30 cap 10/04/21 [Rx Last Taken Unknown] docusate sodium 100 mg PO BID #60 cap 10/04/21 [Rx Last Taken Unknown] methocarbamol 500 mg PO Q6HP PRN #20 tab 10/04/21 [Rx Last Taken Unknown] tramadol 50 - 100 mg PO Q4-6HP PRN #50 tab 10/04/21 [Rx Last Taken Unknown] COURSE Hospital Course Hospital course: History of present illness: Ms. Barrios is a 71 year old F Who was sent in from an outside facility after she fell and landed on her hip while getting out of a car at the same time as her dog. Found to have a left hip fracture. Patient has history of CAD with CABG and is on aspirin. 10/03 now s/p ORIF of hip. Sedated postop in PACU. No complications during surgery. 10/04 Patient doing well. Hoping to go home instead of to rehab. A: *Left hip fracture: s/p ORIF (10/03) *CAD w/CABG: on ASA/statin *GERD: *h/o essential thrombocythemia: on hydroxyurea/ASA -well controlled Discharge diagnosis: Left hip fracture Secondary discharge diagnosis: CAD GERD essential thrombocythemia Time Spent with Patient Time attestation: Total time spent providing and/or coordinating discharge services: Time spent: Greater than 30 minutes EXAM Constitutional Vitals: Temp Pulse Resp BP Pulse Ox 97.1 F 94 H 16 116/67 93 10/04/21 07:16 10/04/21 07:16 10/04/21 07:16 10/04/21 07:16 10/04/21 07:16 Discharge Data Data Completed and Pending Labs on day of discharge: Labs from last 24 hours 10/04/21 05:28 Hgb 12.7 Hct 35.1 Discharge Plan Patient/Caregiver Discharge Instructions Activity: ambulate only with your walker, increase activity as tolerated and as instructed Diet: Regular Diet Activity Restrictions/Additional Instructions: -weight bearing as tolerated- use a walker or crutches as needed. Follow hip precautions as taught by therapy for 6 weeks -the silver dressing on your hipis ok to get wet. Ok to shower with it in place. Do not remove for 7 days. If the edges wrinkle and water gets under the dressing, remove the dressing and replace with dry gauze (stop getting the incision wet if this happens). -Start physical therapy this week. Until then, work on tightening and relaxing your thigh muscles. Tighten your thigh muscles and lift your leg. Work on moving your ankle up and down. Work on bending your knee to 90 degrees. Tighten and relax your butt muscles. Walk several times throughout the day. -Ice your hip for 20 minutes every 3-4 hours throughout the day -Eliquis for total of 35 days to help prevent blood clots -Tylenol is to help with the pain, take this scheduled every 8 hours even if you do not have significant pain -Tramadol is for pain control. Meaning only take it if the other pain medications are not sufficient in controlling your pain. Prescriptions: New acetaminophen [Tylenol] 325 mg Tablet 1,000 mg PO Q8 Qty: 90 RF: 0 Eliquis 5 mg Tablet 2.5 mg PO BID Qty: 66 RF: 0 docusate sodium 100 mg Capsule 100 mg PO BID Qty: 60 RF: 0 tramadol 50 mg Tablet 50 - 100 mg PO Q4-6HP PRN (Reason: Pain) Qty: 50 RF: 0 methocarbamol 750 mg Tablet 500 mg PO Q6HP PRN (Reason: Muscle Spasm) Qty: 20 RF: 0 aspirin 325 mg capsule 325 mg PO BID Qty: 30 RF: 0 Continued aspirin [Lite Coat Aspirin] 325 MG tablet 325 mg PO DAILY RF: 0 simvastatin 20 MG tablet 20 mg PO HS RF: 0 omeprazole 20 MG capsule,delayed release(DR/EC) 20 mg PO DAILY RF: 0 hydroxyurea 500 mg Capsule 500 mg PO QDAY RF: 0 Follow Up Plan Follow up with: Al Parsons MD [Primary Care Provider] - Cassandra Acosta MD [Physician] - Patient Disposition: Home, Self-Care Prognosis: Fair Overall status at discharge: patient is progressing back to baseline Discharge Orders: Discharge Order (Routine); Ordered 10/04/21 Ordered By: Kingston Dunne
[2021-10-04] MEDS: LACTATED RINGERS 1,000 ML IV SCH ×2 (13:18→23:57)
[2021-10-04] MEDS: ACETAMINOPHEN 500 MG TABLET PO SCH (22:26)
[2021-10-04] MEDS: SIMVASTATIN 20 MG TABLET PO SCH (22:26)
[2021-10-05] MEDS: ACETAMINOPHEN 500 MG TABLET PO SCH (05:37)
[2021-10-05] MEDS: 0.9 % SODIUM CHLORIDE 10 ML SYRINGE IV SCH (05:37)
[2021-10-05 06:40] LABS: Basophils # (Auto) 0.02 K/mcL (0.00-0.30); Basophils % (Auto) 0.2 % (0.0-2.0); Eosinophils % (Auto) 1.2 % (0.0-7.0); Hematocrit 34.9 % (34.1-44.9); Hemoglobin 12.2 g/dL (11.2-15.7); Lymphocytes # (Auto) 2.01 K/mcL (1.50-4.80); Lymphocytes % (Auto) 23.8 % (15.5-49.0); Mean Cell Volume 114.1 fL (80.0-100.0); Mean Platelet Volume 10.1 fL (7.4-10.4); Monocytes # (Auto) 0.84 K/mcL (0.10-0.90); Neutrophils % (Auto) 64.8 % (38.0-78.0); Platelet Count 145 K/mcL (140-440); RBC 3.06 M/mcL (3.59-5.38); Red Cell Distribution Width 11.9 % (11.5-14.5); WBC 8.4 K/mcL (4.5-11.0)
[2021-10-05] MEDS: OMEPRAZOLE 20 MG CAPSULE PO SCH (07:02)
[2021-10-05 07:10] LABS: ALT/SGPT 8 U/L (<40); AST/SGOT 30 U/L (<32); Albumin 3.6 gm/dL (3.2-5.2); Albumin/Globulin Ratio 1.3 (1.0-2.3); Alkaline Phosphatase 71 U/L (39-117); Bilirubin,Total 0.5 mg/dL (0.1-1.0); Blood Urea Nitrogen 24 mg/dL (8-23); Calcium 8.9 mg/dL (8.6-10.4); Carbon Dioxide 22 mmol/L (22-30); Chloride 103 mmol/L (96-108); Globulin 2.8 gm/dL (2.2-3.7); Glomerular Filtration Rate 56; Glucose 98 mg/dL (70-105); Iron 25 ug/dL (37-145); TIBC Calculation 147 ug/dl (228-428); Transferrin % Saturation 17 % (15-50); Uric Acid 3.8 mg/dL (2.5-8.0)
[2021-10-05 07:17] LABS: Ferritin 619.3 ng/mL (30.0-400.0)
--- NOTE | 2021-10-05 07:34 | Orthopedic Progress Note ---
SUBJECTIVE Subjective Patient information: Note initiated : 10/05/21 at 7:30 am Service Date, if different from initiated Date: [] Patient: Fani Barrios 71 y/o F admitted on 10/02/21 for Lf hip fx. Chief Complaint: [POD 2 doing well. No acute issues. plans for d/c home today.] Constitutional Vitals: Vital Signs Temp Pulse Resp BP Pulse Ox 97.2 F 58 L 17 126/63 95 10/05/21 02:59 10/05/21 02:59 10/05/21 02:59 10/05/21 02:59 10/05/21 02:59 Period Temp Pulse Resp BP Sys/Carr Pulse Ox Last 24 Hr 97 F-98.0 F 54-64 12-18 115-126/53-63 91-95 Intake and Output 10/04/21 10/05/21 10/05/21 21:59 05:59 13:59 Intake Total 350 50 Output Total 750 300 Balance -400 -250 Weight 122 lb 12.8 oz Intake & Output: Intake & Output 10/04/21 10/05/21 10/05/21 21:59 05:59 13:59 Intake Total 350 50 Output Total 750 300 Balance -400 -250 Weight 122 lb 12.8 oz Intake: Oral 350 50 Output: Void Amount 750 300 Other: Urine Appearance Clear Clear Urine Color Bright Yellow Bright Yellow Urine Odor Normal Additional findings Additional findings: alert and oreinted left hip: dressing clean, dry and intact. Foot warm well perfused. OBJ DATA Labs CBC & Chem 7: 10/05/21 05:25 10/05/21 05:24 Labs: Abnormal Lab Results 10/05/21 10/05/21 10/03/21 05:25 05:24 05:19 RBC 3.06 L MCV 114.1 H MCH 39.9 H PT 14.7 H BUN 24 H Iron 25 L TIBC 147 L Ferritin 619.3 H 10/03/21 05:19 RBC 3.25 L MCV 114.2 H MCH 38.5 H PT BUN Iron TIBC Ferritin Meds: Medications Acetaminophen (Acetaminophen 500 Mg Tablet) 1,000 mg PO Q8 [facility]; Protocol Last Admin: 10/05/21 05:37 Dose: 1,000 mg Documented by: Albuterol/Ipratropium (Ipratropium/Albuterol 3 Ml Ampul.Neb) 3 ml NEB Q4HP PRN PRN Reason: Shortness Of Breath Aspirin (Aspirin 325 Mg Enteric Coated Tablet) 325 mg PO BID [facility] Docusate Sodium (Docusate Sodium 100 Mg Capsule) 100 mg PO BID [facility] Last Admin: 10/04/21 22:27 Dose: 100 mg Documented by: Fentanyl (Fentanyl 100 Mcg/2 Ml Vial) 25 mcg IV Q2HP PRN; Protocol PRN Reason: Per Pain Protocol Hydroxyurea (Hydroxyurea 500 Mg Capsule) 500 mg PO QDAY [facility] Last Admin: 10/04/21 08:02 Dose: 500 mg Documented by: Potassium Chloride 40 meq/ (Dextrose) 520 mls @ 130 mls/hr IV UD PRN PRN Reason: Potassium < 3 Magnesium Sulfate (Magnesium Sulfate) 2 gm in 50 mls @ 50 mls/hr IV UD PRN PRN Reason: Magnesium </= 1.6 Lactated Ringer's (Lactated Ringers) 1,000 mls @ 75 mls/hr IV .[id number] [facility] Last Admin: 10/04/21 23:57 Dose: Not Given Documented by: Methocarbamol (Methocarbamol 750 Mg Tablet) 500 mg PO Q6HP PRN PRN Reason: Muscle Spasm Omeprazole (Omeprazole 20 Mg Capsule) 20 mg PO ACB [facility] Last Admin: 10/05/21 07:02 Dose: 20 mg Documented by: Ondansetron HCl (Ondansetron 4 Mg/2 Ml Vial) 4 mg IV Q4HP PRN PRN Reason: Nausea And Vomiting Polyethylene Glycol (Polyethylene Glycol 3350 17 Gm Packet) 17 gm PO DAILYP PRN PRN Reason: Constipation Potassium Chloride (Potassium Chloride 20 Meq Tablet) 40 meq PO UD PRN PRN Reason: Potssium is 3-3.5 Potassium Chloride (Potassium Chloride 20 Meq Tablet) 40 meq PO UD PRN PRN Reason: Potassium < 3 Senna (Sennosides 1 Tablet) 2 tab PO DAILYP PRN PRN Reason: Constipation Simvastatin (Simvastatin 20 Mg Tablet) 20 mg PO HS [facility] Last Admin: 10/04/21 22:26 Dose: 20 mg Documented by: Sodium Chloride (0.9 % Sodium Chloride 10 Ml Syringe) 10 ml IV Q8 [facility] Last Admin: 10/05/21 05:37 Dose: 10 ml Documented by: Throat Lozenges (Benzocaine/Menthol 1 Lozenge) 1 lozenge PO PRN PRN PRN Reason: Sore Throat Tramadol HCl (Tramadol 50 Mg Tablet) 50 - 100 mg PO Q4-6HP PRN; Protocol PRN Reason: Pain Last Admin: 10/04/21 17:31 Dose: 50 mg Documented by: A/P Assessment and plan (1) Closed left hip fracture: Status: Acute Comment: POD 2 s/p left hip syd[place] arthroplasty for displaced femoral neck fracture. -- WBAT, posterior hip precautions -- PT/OT today -- Oral pain meds -- regular diet -- prophy: aspirin bid, IS, foot pumps, mobilization -- Dispo: planning for d/c home today Qualifiers: Encounter type: initial encounter Qualified Code(s): S72.002A - Fracture of unspecified part of neck of left femur, initial encounter for closed fracture Time Spent With Patient Time: Total time spent is greater than 50% in coordination of care (as doc umented) at patient's floor/unit and/or counseling patient:
--- NOTE | 2021-10-05 08:19 | Discharge Summary ---
Discharge Provider Provider Patient information: Note initiated : 10/05/21 at 8:18 am Service Date, if different from initiated Date: [] Patient: Fani Barrios 71 y/o F admitted on 10/02/21 for Lf hip fx. Chief Complaint: [] Date of admission: 10/02/21 20:49 Discharge date: 10/05/21 Primary care physician: Al Parsons Consults: 10/02/21 21:02 Consult to Physician [CONS] Routine Comment: Consulting Provider: Cassandra Acosta Reason For Exam: Physician to Consult 10/04/21 13:27 Consult to Physician [CONS] Routine Comment: Consulting Provider: Kingston Dunne Reason For Exam: Physician to Consult Discharge Meds Discharge Medications Home Medications aspirin [Lite Coat Aspirin] 325 mg PO DAILY 04/10/18 [History Confirmed 10/02/21 Last Taken Unknown] omeprazole 20 mg PO DAILY 04/10/18 [History Confirmed 10/02/21 Last Taken Unknown] simvastatin 20 mg PO HS 04/10/18 [History Confirmed 10/02/21 Last Taken Unknown] hydroxyurea 500 mg PO QDAY 10/02/21 [History Confirmed 10/02/21 Last Taken Unk nown] acetaminophen [Tylenol] 1,000 mg PO Q8 #90 tab 10/04/21 [Rx Last Taken Unknown] aspirin 325 mg PO BID #30 cap 10/04/21 [Rx Last Taken Unknown] docusate sodium 100 mg PO BID #60 cap 10/04/21 [Rx Last Taken Unknown] methocarbamol 500 mg PO Q6HP PRN #20 tab 10/04/21 [Rx Last Taken Unknown] tramadol 50 - 100 mg PO Q4-6HP PRN #50 tab 10/04/21 [Rx Last Taken Unknown] COURSE Hospital Course Hospital course: History of present illness: Ms. Barrios is a 71 year old F Who was sent in from an outside facility after she fell and landed on her hip while getting out of a car at the same time as her dog. Found to have a left hip fracture. Patient has history of CAD with CABG and is on aspirin. 10/03 now s/p ORIF of hip. Sedated postop in PACU. No complications during surgery. 10/04 Patient doing well. Hoping to go home instead of to rehab. 10/05: Discharged home. Discharge diagnosis: left hip fracture Time Spent with Patient Time attestation: Total time spent providing and/or coordinating discharge se rvices: History of present illness: Ms. Barrios is a 71 year old F Who was sent in from an outside facility after she fell and landed on her hip while getting out of a car at the same time as her dog. Found to have a left hip fracture. Patient has history of CAD with CABG and is on aspirin. 10/03 now s/p ORIF of hip. Sedated postop in PACU. No complications during surgery. 10/04 Patient doing well. Hoping to go home instead of to rehab. 10/05: Discharged home. EXAM Constitutional Vitals: Temp Pulse Resp BP Pulse Ox 35.7 C L 58 L 17 138/77 97 10/05/21 07:31 10/05/21 07:31 10/05/21 07:31 10/05/21 07:31 10/05/21 07:31 General appearance: cooperative and no acute distress Head Head exam: Present atraumatic and normocephalic Eye Eye exam: Present EOMI and PERRL ENT ENT exam: Present mucous membranes moist, normal exam and normal external ear exam Neck Neck exam: Present normal inspection; Absent lymphadenopathy, tenderness and thyromegaly Respiratory Respiratory exam: Absent accessory muscle use, respiratory distress and wheezes Cardiovascular Cardiovascular exam: Present normal rate and rhythm; Absent JVD GI/Abdominal GI/Abdominal exam: Present normal bowel sounds and soft; Absent organomegaly and tenderness Extremities Exam Extremities exam: Present full ROM, normal capillary refill and tenderness; Absent normal inspection Additional comments: Left hip covered by surgical dressing Neurological Exam Neurological exam: Present alert, CN II-XII intact and oriented X3; Absent motor sensory deficit Psychiatric Psychiatric exam: Present normal affect and normal mood; Absent anxious and depressed Skin Skin exam: Present dry and intact Discharge Data Data Completed and Pending Labs on day of discharge: Labs from last 24 hours 10/05/21 10/05/21 10/05/21 05:25 05:25 05:24 WBC 8.4 RBC 3.06 L Hgb 12.2 TNP Hct 34.9 TNP MCV 114.1 H MCH 39.9 H MCHC 35.0 RDW 11.9 Plt Count 145 MPV 10.1 Neut % (Auto) 64.8 Lymph % (Auto) 23.8 [place] % (Auto) 10.0 Eos % (Auto) 1.2 Baso % (Auto) 0.2 Lymph # (Auto) 2.01 [place] # (Auto) 0.84 Eos # (Auto) 0.10 Baso # (Auto) 0.02 Absolute Neutrophils 5.46 Sodium 137 Potassium 4.1 Chloride 103 Carbon Dioxide 22 Anion Gap 12.0 BUN 24 H Creatinine 1.0 GFR Calculation 56 Glucose 98 Uric Acid 3.8 Calcium 8.9 Iron 25 L TIBC 147 L Unsat Iron Binding 122 Transferrin % Sat 17 Ferritin 619.3 H Total Bilirubin 0.5 AST 30 ALT 8 Alkaline Phosphatase 71 Total Protein 6.4 Albumin 3.6 Globulin 2.8 Albumin/Globulin Ratio 1.3 Discharge Plan Patient/Caregiver Discharge Instructions Activity: ambulate only with your walker, increase activity as tolerated and as instructed Diet: Regular Diet Activity Restrictions/Additional Instructions: -weight bearing as tolerated- use a walker or crutches as needed. Follow hip precautions as taught by therapy for 6 weeks -the silver dressing on your hipis ok to get wet. Ok to shower with it in place. Do not remove for 7 days. If the edges wrinkle and water gets under the dressing, remove the dressing and replace with dry gauze (stop getting the incision wet if this happens). -Start physical therapy this week. Until then, work on tightening and relaxing your thigh muscles. Tighten your thigh muscles and lift your leg. Work on moving your ankle up and down. Work on bending your knee to 90 degrees. Tighten and relax your butt muscles. Walk several times throughout the day. -Ice your hip for 20 minutes every 3-4 hours throughout the day -Your aspirin is changed to twice daily help prevent blood clots -Tylenol is to help with the pain, take this scheduled every 8 hours even if you do not have significant pain -Tramadol is for pain control. Meaning only take it if the other pain medications are not sufficient in controlling your pain. Prescriptions: New acetaminophen [Tylenol] 325 mg Tablet 1,000 mg PO Q8 Qty: 90 RF: 0 docusate sodium 100 mg Capsule 100 mg PO BID Qty: 60 RF: 0 tramadol 50 mg Tablet 50 - 100 mg PO Q4-6HP PRN (Reason: Pain) Qty: 50 RF: 0 methocarbamol 750 mg Tablet 500 mg PO Q6HP PRN (Reason: Muscle Spasm) Qty: 20 RF: 0 aspirin 325 mg capsule 325 mg PO BID Qty: 30 RF: 0 Continued aspirin [Lite Coat Aspirin] 325 MG tablet 325 mg PO DAILY RF: 0 simvastatin 20 MG tablet 20 mg PO HS RF: 0 omeprazole 20 MG capsule,delayed release(DR/EC) 20 mg PO DAILY RF: 0 hydroxyurea 500 mg Capsule 500 mg PO QDAY RF: 0 Other Ambulatory Orders: Physical Therapy at Discharge - JUAN (Routine) Location: None Selected Ordered By: Cassandra Escalante (ONCE) Location: None Selected Ordered By: Cassandra Acosta Follow Up Plan Follow up with: Al Parsons MD [Primary Care Provider] - Cassandra Acosta MD [Physician] - Patient Disposition: Home, Self-Care Prognosis: Fair Overall status at discharge: patient is progressing back to baseline Discharge Orders: Discharge Order (Routine); Ordered 10/05/21 Ordered By: Kingston Dunne
[2021-10-05] MEDS ORDERED: ASPIRIN 325 MG ENTERIC COATED TABLET PO SCH (09:00)
[2021-10-05] MEDS: HYDROXYUREA 500 MG CAPSULE PO SCH (09:07)
[2021-10-05] MEDS: DOCUSATE SODIUM 100 MG CAPSULE PO SCH (09:07)
== END 2021-10-05 12:27 | disposition home or self-care (01) | DRG 522 ==
LOC: ED 17:10 → MEDSUR 20:49
PROVIDERS: ADMIT Internal Medicine; ATTEND Internal Medicine